=== PATIENT | male | born 1970 | race Caucasian/White ===

== ENCOUNTER → 2016-07-28 | Outpatient (CLI) | payer OTHER ==
--- NOTE | 2016-07-28 13:27 | REP ---
Clinical: Dyspnea. Acute bronchitis. Comparison: None . Technique: PA and lateral. Findings: The mediastinum and cardiac silhouette are normal. The lung [place] are clear and without acute consolidation, effusion, or pneumothorax. The skeletal structures are intact and normal. Impression: 1. No acute cardiopulmonary process. Signed by Rene Lira MD 07/28/2016 01:19 P
[2016-07-28 20:05] LABS: BASO % 0.4 % (0.0-1.0); EOS # 0.1 K/mm3 (0.0-0.50); EOS % 2.8 % (0.0-3.0); LARGE UNSTAINED CELL # 0.1 K/mm3 (0.0-0.4); LARGE UNSTAINED CELL % 3.6 % (0.0-4.0); LYMPH # 1.1 K/mm3 (1.5-4.5); LYMPH % 37.7 % (24.0-44.0); MEAN CORPUSCULAR HGB CONC 34.7 g/dl (32.0-36.5); MEAN CORPUSCULAR VOLUME 83.6 fl (80.0-96.0); MONO # 0.2 K/mm3 (0.0-0.8); MONO % 7.3 % (0.0-5.0); NEUTROPHILS # 1.4 K/mm3 (1.8-7.7); NEUTROPHILS % 48.2 % (36.0-66.0); PLATELET COUNT, AUTOMATED 184 k/mm3 (150-450); RED CELL DISTRIBUTION WIDTH 12.5 % (11.5-14.5)
[2016-07-29 07:41] LABS: CONTROL LINE MONO RF C INT CTR LINE PRESENT
== END ==
LOC: M ADAMS 12:55
PROVIDERS: ATTEND Physician Assistant Medical
DX: J20.9 Acute bronchitis, unspecified (principal)

== ENCOUNTER → 2017-03-13 | Outpatient (REF) | payer OTHER | LOC: M LAB REF 17:32 | PROVIDERS: ATTEND Physician Assistant Medical | DX: M54.5 Low back pain (principal) ==

== ENCOUNTER → 2018-02-12 | Outpatient (CLI) | payer OTHER | LOC: M ADAMS 09:49 | DX: M77.31 Calcaneal spur, right foot (principal); M20.11 Hallux valgus (acquired), right foot; M79.671 Pain in right foot | CPT/HCPCS: 73630 ==

== ENCOUNTER → 2019-01-19 | Outpatient (REF) | payer OTHER ==
[2019-01-19 12:54] LABS: BACTERIA, URINE AUTO NEGATIVE (NEGATIVE); RBC, URINE AUTO 4 /HPF (0-3); SQUAMOUS EPITHELIAL CELL UR AU 0 /HPF (0-6); WBC, URINE AUTO 0 /HPF (0-3)
== END ==
LOC: M LAB REF 11:59
PROVIDERS: ATTEND Physician Assistant
DX: R31.9 Hematuria, unspecified (principal); R30.0 Dysuria

== ENCOUNTER → 2020-10-30 | Outpatient (CLI) | payer OTHER ==
[2020-10-30 10:34] LABS: BASO % 0.6 % (0.0-1.0); EOS # 0.4 10^3/uL (0.0-0.5); EOS % 6.3 % (0.0-3.0); HEMATOCRIT 47.2 % (42.0-52.0); LYMPH # 1.4 10^3/uL (1.5-5.0); LYMPH % 22.4 % (24.0-44.0); MEAN CORPUSCULAR HEMOGLOBIN 29.5 pg (27.0-33.0); MEAN CORPUSCULAR HGB CONC 33.9 g/dl (32.0-36.5); MEAN CORPUSCULAR VOLUME 87.1 fl (80.0-96.0); MONO # 0.5 10^3/uL (0.0-0.8); MONO % 7.4 % (2.0-8.0); NEUTROPHILS % 62.7 % (36.0-66.0); PLATELET COUNT, AUTOMATED 204 10^3/uL (150-450); RED BLOOD COUNT 5.42 10^6/uL (4.30-6.10); WHITE BLOOD COUNT 6.4 10^3/uL (4.0-10.0)
[2020-10-30 11:12] LABS: ERYTHROCYTE SEDIMENTATION RATE 2 mm/hr (0-15)
[2020-10-30 12:18] LABS: ALBUMIN 3.8 GM/DL (3.2-5.2); ALT/SGPT 44 U/L (12-78); BILIRUBIN,TOTAL 0.3 MG/DL (0.2-1.0); BLOOD UREA NITROGEN 20 MG/DL (7-18); CALCIUM LEVEL 9.4 MG/DL (8.5-10.1); CARBON DIOXIDE LEVEL 29 MEQ/L (21-32); CHLORIDE LEVEL 110 MEQ/L (98-107); CHOLESTEROL LEVEL 179 MG/DL (<200); CHOLESTEROL RISK RATIO 2.934 (<5); CREATININE FOR GFR 0.91 MG/DL (0.70-1.30); GLOMERULAR FILTRATION RATE > 60.0 (>60); GLUCOSE, FASTING 96 MG/DL (70-100); HDL CHOLESTEROL 61 MG/DL (>40); LDL CHOLESTEROL 106 MG/DL (<100); NON-HDL-C 118 MG/DL; POTASSIUM SERUM 4.8 MEQ/L (3.5-5.1); RHEUMATOID FACTOR QUANT < 10.0 IU/ML (<15.0); SODIUM LEVEL 141 MEQ/L (136-145); TOTAL PROTEIN 7.1 GM/DL (6.4-8.2); TRIGLYCERIDES LEVEL 58 MG/DL (<150)
[2020-10-30 12:24] LABS: TOTAL 25(OH) VITAMIN D 21.9 NG/ML (30.0-100.0)
[2020-10-31 15:08] LABS: ANTINUCLEAR ANTIBODIES DIRECT Negative (Negative); Lyme Disease IgG/IgM Antibodie <0.91 ISR (0.00-0.90); Lyme Disease IgM Ab Quantitati <0.80 index (0.00-0.79)
== END ==
LOC: M PLALAB 08:54
PROVIDERS: ATTEND Family Medicine
DX: Z00.00 Encounter for general adult medical examination without abnormal findings (principal); M12.9 Arthropathy, unspecified; E55.9 Vitamin D deficiency, unspecified

== ENCOUNTER 2023-04-22 07:53 | Day surgery (SDC) | payer OTHER ==
[~2023-04-22] VITALS: Ht 182.9 cm; Wt 119.5 kg
[~2023-04-22 07:53] MED LIST: GALZ50CA PO; NS 1,000 ML IV ONE; OSTE5TAB PO; VITA100093 PO; VITA500C24 PO
[2023-04-22] MEDS ORDERED: propofoL 200 MG/20 ML VIAL As Ordered ONE ×2 (08:55→08:59)
[2023-04-22 09:14] VITALS: TEMP 97.9
[2023-04-22 09:33] VITALS: BP 110/63; O2SAT 98
== END 2023-04-22 09:40 | disposition home or self-care (01) ==
LOC: M OPP 07:53
PROVIDERS: ATTEND Surgery
DX: Z12.11 Encounter for screening for malignant neoplasm of colon (principal); Z86.16 Personal history of COVID-19; F17.200 Nicotine dependence, unspecified, uncomplicated